=== PATIENT | female | born 1980 | race African-American/Black ===

== ENCOUNTER 2018-07-15 10:31 | Emergency (ER) | payer MEDICAID ==
[~2018-07-15] VITALS: Ht 175.3 cm; Wt 86.6 kg
[~2018-07-15 10:31] MED LIST: CIPRO250 M1 PO; IBUPROFEN 800800 M1 PO; MELOXICAM7.5 MG PO; NAPROSYN500 MG PO; NORCO 5-325 TA1 EACH; NORCO 5-325 TA1 EACH PO; PENICILLIN VK500 M1 PO; PHENERGAN12.5 MG RE; PYRIDIUM200 MG PO; RELAFEN750 MG PO; ZANAFLEX4 M1 PO
[2018-07-15 10:47] LABS: URINE BILIRUBIN NEGATIVE (Negative); URINE BLOOD 1+ (Negative); URINE CLARITY CLEAR; URINE COLOR YELLOW; URINE GLUCOSE-RANDOM NEGATIVE (Negative); URINE KETONES NEGATIVE (Negative); URINE LEUKOCYTES-REFLEX NEGATIVE (Negative); URINE NITRITE-REFLEX NEGATIVE (Negative); URINE PROTEIN NEGATIVE (Negative); URINE SPECIFIC GRAVITY 1.025 (1.005-1.030); URINE UROBILINOGEN 0.2 E.U./dl (0.2-1.0)
[2018-07-15] MEDS ORDERED: METFORMIN HCL500 MG PO (10:49)
[2018-07-15] MEDS ORDERED: HYDROCHLOROTH12.5 M1 PO (10:50)
[2018-07-15 10:54] LABS: MUCUS 4-6 Moderate strn/LPF (None Seen); SQUAMOUS >10 Many /LPF (0-3)
[2018-07-15 10:55] LABS: HYALINE CASTS 0-3 Few /LPF (None Seen)
[2018-07-15 10:56] LABS: BACTERIA-REFLEX 1-9 Few /HPF (None Seen); CRYSTALS None Seen /LPF (None Seen); URINE RBC 0-2 Rare /HPF (0-2); URINE WBC-REFLEX 0-5 Rare /HPF (0-5)
[2018-07-15 11:17] LABS: HEMATOCRIT 37.6 % (37.0-47.0); HEMOGLOBIN 12.2 gm/dL (12.0-15.0); MCH 24.3 pg (26.0-34.0); MCHC 32.3 g/dL (28.0-37.0); MPV 8.1 fl. (7.2-11.1); RBC 5.01 mil/uL (4.20-5.00); RDW-CV 16.3 % (10.5-14.5); WBC 5.3 thou/uL (4.0-11.0)
[2018-07-15] MEDS ORDERED: IBUPROFEN 800800 M1 PO (11:24)
[2018-07-15 11:36] VITALS: BP 132/97
== END 2018-07-15 11:39 | disposition home or self-care (01) ==
LOC: M.ERS 10:31
PROVIDERS: Family Medicine; Nurse Practitioner Family
DX: N93.8 Other specified abnormal uterine and vaginal bleeding (principal); R42 Dizziness and giddiness; E11.9 Type 2 diabetes mellitus without complications; I10 Essential (primary) hypertension; Z88.0 Allergy status to penicillin

== ENCOUNTER 2018-08-08 12:29 | Emergency (ER) | payer MEDICAID ==
[~2018-08-08] VITALS: Ht 175.3 cm; Wt 81.7 kg
[~2018-08-08 12:29] MED LIST changes: +HYDROCHLOROTH12.5 M1 PO; +METFORMIN HCL500 MG PO
[2018-08-08 13:29] LABS: ABSOLUTE BASOPHILS 0.1 thou/uL (0.0-0.2); ABSOLUTE EOSINOPHILS 0.4 thou/uL (0.0-0.7); ABSOLUTE LYMPHOCYTES 2.2 thou/uL (0.8-5.3); ABSOLUTE MONOCYTES 0.3 thou/uL (0.0-1.2); ABSOLUTE NEUTROPHILS 2.4 thou/uL (1.6-8.1); BASOPHILS 1.2 %; EOSINOPHILS 6.7 %; HEMATOCRIT 36.2 % (37.0-47.0); HEMOGLOBIN 11.6 gm/dL (12.0-15.0); LYMPHOCYTES 41.5 %; MCH 24.1 pg (26.0-34.0); MCHC 32.2 g/dL (28.0-37.0); MONOCYTES 5.9 %; MPV 8.1 fl. (7.2-11.1); NUCLEATED RBCS 0 /100WBC; PLATELET COUNT* 333 thou/uL (150-400); POLYS 44.7 %; RBC 4.82 mil/uL (4.20-5.00); RDW-CV 17.5 % (10.5-14.5); WBC 5.3 thou/uL (4.0-11.0)
[2018-08-08 13:44] LABS: ANION GAP 8 mmol/L (7-16); BUN 14 mg/dL (7-18); CALCIUM 9.2 mg/dL (8.5-10.1); CHLORIDE 104 mmol/L (98-107); CO2 25 mmol/L (21-32); CREATININE 0.7 mg/dL (0.6-1.3); GLUCOSE 114 mg/dL (70-99); POTASSIUM 3.9 mmol/L (3.5-5.1); SODIUM 137 mmol/L (136-145)
[2018-08-08 13:48] LABS: ALBUMIN 3.6 g/dL (3.4-5.0); ALKALINE PHOSPHATASE 53 U/L (46-116); MAGNESIUM 1.7 mg/dL (1.8-2.4); SGOT 24 U/L (15-37); SGPT 25 U/L (30-65); TOTAL BILIRUBIN 0.4 mg/dL (<0.1-1.0); TOTAL PROTEIN 7.7 g/dL (6.4-8.2); TROPONIN-I LEVEL <0.06 ng/mL (<0.06)
[2018-08-08 14:30] LABS: INFLUENZA A ANTIGEN None Detected (None Detect); INFLUENZA B ANTIGEN None Detected (None Detect)
[2018-08-08] MEDS ORDERED: NORCO 5-325 TA1 EACH PO (15:36)
[2018-08-08] MEDS ORDERED: TORADOL 10 MG T10 MG PO (15:36)
[2018-08-08 15:46] VITALS: BP 141/94
--- NOTE | 2018-08-08 17:12 | EKG ---
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: Marissa GRIJALVA : 1980 Requested By: Funmilayo Kevin Order Number: [id number] MD: Francisco Guy Measurements Intervals [place] Rate: 88 P: 50 TN: 177 QRS: -22 QRSD: 95 T: 35 QT: 374 QTc: 453 Interpretive Statements Sinus rhythm Probable left atrial enlargement Borderline left axis deviation Consider anterior infarct No previous ECG available for comparison Electronically Signed On 08-08-2018 17:12:05 CDT by Francisco Guy [email or web address] <ELECTRONICALLY SIGNED> By: Francisco Guy MD, [facility] 08/08/18 1712 1236 123 Francisco Guy MD, FACC /EPI
== END 2018-08-08 15:47 | disposition home or self-care (01) ==
LOC: M.ERS 12:29
PROVIDERS: Personal Emergency Response Attendant
DX: B34.9 Viral infection, unspecified (principal); M79.10 Myalgia, unspecified site; I10 Essential (primary) hypertension; E11.9 Type 2 diabetes mellitus without complications; Z88.0 Allergy status to penicillin; Z98.51 Tubal ligation status; R11.2 Nausea with vomiting, unspecified

== ENCOUNTER 2018-10-20 10:21 | Emergency (ER) | payer OTHER ==
[~2018-10-20] VITALS: Ht 175.3 cm; Wt 88.5 kg
[~2018-10-20 10:21] MED LIST changes: +TORADOL 10 MG T10 MG PO
[2018-10-20] MEDS ORDERED: FLEXERIL PO (10:41)
[2018-10-20] MEDS ORDERED: NORCO 5-325 TA1 EACH PO (11:36)
[2018-10-20 11:56] VITALS: BP 123/75
== END 2018-10-20 11:57 | disposition home or self-care (01) ==
LOC: M.ERS 10:21
DX: M25.561 Pain in right knee (principal); W19.XXXA Unspecified fall, initial encounter; Y93.89 Activity, other specified; Y92.89 Other specified places as the place of occurrence of the external cause; Y99.8 Other external cause status; I10 Essential (primary) hypertension; E11.9 Type 2 diabetes mellitus without complications

== ENCOUNTER 2018-10-26 09:57 | Emergency (ER) | payer OTHER ==
[~2018-10-26] VITALS: Ht 175.3 cm; Wt 89.8 kg
[~2018-10-26 09:57] MED LIST changes: +FLEXERIL PO
[2018-10-26 10:01] VITALS: BP 146/98
[2018-10-26] MEDS ORDERED: TRAMADOL 50 MG50 MG PO (10:16)
== END 2018-10-26 10:24 | disposition home or self-care (01) ==
LOC: M.ERS 09:57
DX: M25.561 Pain in right knee (principal); Z76.0 Encounter for issue of repeat prescription; I10 Essential (primary) hypertension; E11.9 Type 2 diabetes mellitus without complications; Z88.0 Allergy status to penicillin; Z88.5 Allergy status to narcotic agent; F17.210 Nicotine dependence, cigarettes, uncomplicated

== ENCOUNTER 2018-12-20 15:35 | Emergency (ER) | payer OTHER ==
[~2018-12-20] VITALS: Ht 175.3 cm; Wt 86.2 kg
[~2018-12-20 15:35] MED LIST changes: +TRAMADOL 50 MG50 MG PO
[2018-12-20 16:33] LABS: ABSOLUTE BASOPHILS 0.1 thou/uL (0.0-0.2); ABSOLUTE EOSINOPHILS 0.3 thou/uL (0.0-0.7); ABSOLUTE LYMPHOCYTES 1.3 thou/uL (0.8-5.3); ABSOLUTE MONOCYTES 0.4 thou/uL (0.0-1.2); ABSOLUTE NEUTROPHILS 4.9 thou/uL (1.6-8.1); EOSINOPHILS 3.8 %; HEMATOCRIT 38.2 % (37.0-47.0); HEMOGLOBIN 12.5 gm/dL (12.0-15.0); LYMPHOCYTES 19.2 %; MCH 24.3 pg (26.0-34.0); MCHC 32.7 g/dL (28.0-37.0); MCV 74.4 fL (80.0-100.0); MONOCYTES 5.3 %; MPV 8.1 fl. (7.2-11.1); NUCLEATED RBCS 0 /100WBC; PLATELET COUNT* 320 thou/uL (150-400); POLYS 70.7 %; RBC 5.13 mil/uL (4.20-5.00); RDW-CV 17.7 % (10.5-14.5)
[2018-12-20 16:54] LABS: ALBUMIN 3.6 g/dL (3.4-5.0); CALCIUM 9.6 mg/dL (8.5-10.1); POTASSIUM 3.6 mmol/L (3.5-5.1); TOTAL BILIRUBIN 0.3 mg/dL (<0.1-1.0); TOTAL PROTEIN 7.7 g/dL (6.4-8.2)
[2018-12-20] MEDS ORDERED: TESSALON PERLE100 MG PO (16:59)
[2018-12-20] MEDS ORDERED: ACETAMINOPHEN-1 EAC1 PO (16:59)
[2018-12-20] MEDS ORDERED: KEFLEX500 M1 PO (16:59)
[2018-12-20] MEDS ORDERED: ZOFRAN ODT4 MG PO (16:59)
[2018-12-20] MEDS ORDERED: MEDROLDOSEPACK PO (16:59)
[2018-12-20 17:10] LABS: INFLUENZA A ANTIGEN None Detected (None Detect); INFLUENZA B ANTIGEN None Detected (None Detect)
[2018-12-20 17:33] VITALS: BP 127/81
== END 2018-12-20 17:34 | disposition home or self-care (01) ==
LOC: M.ERS 15:35
PROVIDERS: Physician Assistant
DX: J20.9 Acute bronchitis, unspecified (principal); R11.2 Nausea with vomiting, unspecified; I10 Essential (primary) hypertension; E11.9 Type 2 diabetes mellitus without complications; Z98.890 Other specified postprocedural states; Z88.0 Allergy status to penicillin; Z88.5 Allergy status to narcotic agent

== ENCOUNTER 2020-07-19 05:37 | Emergency (ER) | payer OTHER ==
[~2020-07-19] VITALS: Ht 175.3 cm; Wt 81.6 kg
[~2020-07-19 05:37] MED LIST changes: +ACETAMINOPHEN-1 EAC1 PO; +KEFLEX500 M1 PO; +MEDROLDOSEPACK PO; +TESSALON PERLE100 MG PO; +ZOFRAN ODT4 MG PO
[2020-07-19 06:30] LABS: ABSOLUTE BASOPHILS 0.1 thou/uL (0.0-0.2); ABSOLUTE EOSINOPHILS 0.3 thou/uL (0.0-0.7); ABSOLUTE LYMPHOCYTES 2.7 thou/uL (0.8-5.3); ABSOLUTE MONOCYTES 0.3 thou/uL (0.0-1.2); ABSOLUTE NEUTROPHILS 3.6 thou/uL (1.6-8.1); BASOPHILS 1.1 %; EOSINOPHILS 4.8 %; HEMATOCRIT 35.1 % (37.0-47.0); HEMOGLOBIN 11.5 gm/dL (12.0-15.0); LYMPHOCYTES 38.4 %; MCH 22.4 pg (26.0-34.0); MCHC 32.8 g/dL (28.0-37.0); MCV 68.4 fL (80.0-100.0); MONOCYTES 4.5 %; NUCLEATED RBCS 0 /100WBC; PLATELET COUNT* 363 thou/uL (150-400); POLYS 51.2 %; RBC 5.13 mil/uL (4.20-5.00); RDW-CV 20.2 % (10.5-14.5)
[2020-07-19 06:34] LABS: CALCIUM 8.8 mg/dL (8.5-10.1); CREATININE 1.1 mg/dL (0.6-1.3); POTASSIUM 3.6 mmol/L (3.5-5.1)
[2020-07-19 06:38] LABS: ALBUMIN 3.9 g/dL (3.4-5.0); TOTAL BILIRUBIN 0.3 mg/dL (<0.1-1.0); TOTAL PROTEIN 8.2 g/dL (6.4-8.2)
[2020-07-19 06:46] LABS: URINE BILIRUBIN NEGATIVE (Negative); URINE BLOOD NEGATIVE (Negative); URINE CLARITY CLEAR; URINE COLOR YELLOW; URINE GLUCOSE-RANDOM NEGATIVE (Negative); URINE KETONES NEGATIVE (Negative); URINE LEUKOCYTES-REFLEX TRACE (Negative); URINE NITRITE-REFLEX NEGATIVE (Negative); URINE PROTEIN NEGATIVE (Negative); URINE SPECIFIC GRAVITY >= 1.030 (1.005-1.030); URINE UROBILINOGEN 0.2 E.U./dl (0.2-1.0)
[2020-07-19 07:20] LABS: ANISOCYTOSIS 2+; HYPOCHROMASIA 2+; MICROCYTES 2+
[2020-07-19] MEDS ORDERED: PERCOCET 5-3251 EACH PO (07:22)
[2020-07-19] MEDS ORDERED: ZOFRAN ODT4 MG SUBLING (07:22)
[2020-07-19 07:33] VITALS: BP 131/92
--- NOTE | 2020-07-19 15:43 | EKG ---
[place] [address] ELECTROCARDIOGRAM REPORT Name: JP CHARLES Room: [facility]#: [id number] Admission: 07/19/20 Attend Phys: Discharge: 07/19/20 Date of : 76 Date of Service: 07/19/20616 Report #: [id number] THIS REPORT FOR: //name// 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: : 1980 Requested By: Funmilayo Kevin Order Number: [id number] MD: Dylon Cheung Measurements Intervals [place] Rate: 75 P: 34 [place]: 190 QRS: -20 QRSD: 108 T: 27 QT: 403 QTc: 451 Interpretive Statements Sinus rhythm Borderline left axis deviation Baseline wander in lead(s) III Compared to ECG 08/08/2018 12:36:58 Myocardial infarct finding no longer present Electronically Signed On 07-19-2020 15:43:21 CDT by Dylon Cheung [email or web address] <ELECTRONICALLY SIGNED> By: Dylon Cheung MD, FACC 07/19/20 1543 0617 Dylon Cheung MD, [facility] /EPI
== END 2020-07-19 07:33 | disposition home or self-care (01) ==
LOC: M.ERS 05:37
PROVIDERS: Personal Emergency Response Attendant
DX: R10.11 Right upper quadrant pain (principal); R10.12 Left upper quadrant pain; R10.84 Generalized abdominal pain; R11.2 Nausea with vomiting, unspecified; I10 Essential (primary) hypertension; E11.9 Type 2 diabetes mellitus without complications; Z98.51 Tubal ligation status; Z88.0 Allergy status to penicillin; Z88.6 Allergy status to analgesic agent

== ENCOUNTER 2020-08-14 07:52 | Emergency (ER) | payer OTHER ==
[~2020-08-14] VITALS: Ht 175.3 cm; Wt 84.4 kg
[~2020-08-14 07:52] MED LIST changes: +PERCOCET 5-3251 EACH PO; +ZOFRAN ODT4 MG SUBLING
[2020-08-14 08:24] LABS: ABSOLUTE BASOPHILS 0.1 thou/uL (0.0-0.2); ABSOLUTE EOSINOPHILS 0.2 thou/uL (0.0-0.7); ABSOLUTE LYMPHOCYTES 2.6 thou/uL (0.8-5.3); ABSOLUTE MONOCYTES 0.3 thou/uL (0.0-1.2); ABSOLUTE NEUTROPHILS 3.9 thou/uL (1.6-8.1); BASOPHILS 1.3 %; EOSINOPHILS 2.9 %; HEMATOCRIT 33.4 % (37.0-47.0); HEMOGLOBIN 10.5 gm/dL (12.0-15.0); LYMPHOCYTES 36.4 %; MCH 21.5 pg (26.0-34.0); MCHC 31.5 g/dL (28.0-37.0); MCV 68.1 fL (80.0-100.0); MPV 7.7 fl. (7.2-11.1); NUCLEATED RBCS 0 /100WBC; PLATELET COUNT* 392 thou/uL (150-400); POLYS 55.4 %; WBC 7.1 thou/uL (4.0-11.0)
[2020-08-14 08:32] LABS: CALCIUM 9.5 mg/dL (8.5-10.1); CREATININE 0.9 mg/dL (0.6-1.3); POTASSIUM 3.6 mmol/L (3.5-5.1)
[2020-08-14 08:37] LABS: ALBUMIN 3.9 g/dL (3.4-5.0); TOTAL BILIRUBIN 0.3 mg/dL (<0.1-1.0); TOTAL PROTEIN 8.4 g/dL (6.4-8.2)
[2020-08-14 09:01] LABS: HYPOCHROMASIA 2+; MICROCYTES 3+; PLATELET ESTIMATE ADEQUATE
[2020-08-14] MEDS ORDERED: BENTYL 20 MG TA20 M1 PO (09:59)
[2020-08-14] MEDS ORDERED: ZOFRAN ODT4 MG DISSOLVE (09:59)
[2020-08-14] MEDS ORDERED: PERCOCET 5-3251 EACH PO (09:59)
[2020-08-14 10:05] VITALS: BP 130/60
--- NOTE | 2020-08-14 10:50 | EKG ---
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
== END 2020-08-14 10:05 | disposition home or self-care (01) ==
LOC: M.ERS 07:52
PROVIDERS: Emergency Medicine Emergency Medical Services
DX: R10.84 Generalized abdominal pain (principal); R11.2 Nausea with vomiting, unspecified; Z88.6 Allergy status to analgesic agent; Z88.0 Allergy status to penicillin

== ENCOUNTER 2020-12-11 10:44 | Emergency (ER) | payer OTHER ==
[~2020-12-11] VITALS: Ht 175.3 cm; Wt 81.7 kg
[~2020-12-11 10:44] MED LIST changes: +BENTYL 20 MG TA20 M1 PO; +ZOFRAN ODT4 MG DISSOLVE
[2020-12-11 11:41] LABS: CALCIUM 9.5 mg/dL (8.5-10.1); CREATININE 0.9 mg/dL (0.6-1.3); POTASSIUM 3.9 mmol/L (3.5-5.1)
[2020-12-11 11:43] LABS: APTT 23.9 Seconds (25.0-31.3); INR 1.1; PROTIME 11.2 Seconds (9.20-11.50)
[2020-12-11 11:46] LABS: ALBUMIN 3.6 g/dL (3.4-5.0); TOTAL BILIRUBIN 0.4 mg/dL (<0.1-1.0); TOTAL PROTEIN 7.4 g/dL (6.4-8.2)
[2020-12-11 11:47] LABS: ABSOLUTE EOSINOPHILS 0.2 thou/uL (0.0-0.7); ABSOLUTE LYMPHOCYTES 1.8 thou/uL (0.8-5.3); ABSOLUTE MONOCYTES 0.3 thou/uL (0.0-1.2); ABSOLUTE NEUTROPHILS 2.8 thou/uL (1.6-8.1); BASOPHILS 0.4 %; EOSINOPHILS 4.3 %; HEMATOCRIT 34.9 % (37.0-47.0); HEMOGLOBIN 10.9 gm/dL (12.0-15.0); LYMPHOCYTES 34.3 %; MCH 21.1 pg (26.0-34.0); MCHC 31.2 g/dL (28.0-37.0); MCV 67.8 fL (80.0-100.0); MONOCYTES 6.4 %; MPV 7.4 fl. (7.2-11.1); NUCLEATED RBCS 0 /100WBC; PLATELET COUNT* 362 thou/uL (150-400); POLYS 54.6 %; RBC 5.15 mil/uL (4.20-5.00); RDW-CV 19.3 % (10.5-14.5); WBC 5.1 thou/uL (4.0-11.0)
[2020-12-11 12:06] LABS: URINE BILIRUBIN NEGATIVE (Negative); URINE BLOOD TRACE (Negative); URINE CLARITY CLEAR; URINE COLOR YELLOW; URINE GLUCOSE-RANDOM NEGATIVE (Negative); URINE KETONES NEGATIVE (Negative); URINE LEUKOCYTES-REFLEX NEGATIVE (Negative); URINE NITRITE-REFLEX NEGATIVE (Negative); URINE PROTEIN NEGATIVE (Negative); URINE SPECIFIC GRAVITY 1.025 (1.005-1.030); URINE UROBILINOGEN 0.2 E.U./dl (0.2-1.0)
[2020-12-11 12:12] LABS: ANISOCYTOSIS 1+; HYPOCHROMASIA 2+; MICROCYTES 2+
[2020-12-11] MEDS ORDERED: ONDANSETRON ODT4 MG PO (12:53)
[2020-12-11] MEDS ORDERED: NORCO5 PO ×2 (12:53→12:56)
[2020-12-11 13:53] VITALS: BP 149/95
== END 2020-12-11 13:53 | disposition home or self-care (01) ==
LOC: M.ERS 10:44
PROVIDERS: Physician Assistant
DX: R10.84 Generalized abdominal pain (principal); R11.2 Nausea with vomiting, unspecified; K92.1 Melena; Z88.0 Allergy status to penicillin

== ENCOUNTER 2021-02-05 07:21 | Emergency (ER) | payer OTHER ==
[~2021-02-05] VITALS: Ht 175.3 cm; Wt 81.7 kg
[~2021-02-05 07:21] MED LIST changes: +NORCO5 PO; +ONDANSETRON ODT4 MG PO
[2021-02-05 07:34] LABS: URINE BLOOD 3+ (Negative); URINE CLARITY CLEAR; URINE COLOR YELLOW; URINE GLUCOSE-RANDOM NEGATIVE (Negative); URINE KETONES NEGATIVE (Negative); URINE LEUKOCYTES-REFLEX NEGATIVE (Negative); URINE NITRITE-REFLEX NEGATIVE (Negative); URINE PROTEIN NEGATIVE (Negative); URINE SPECIFIC GRAVITY >= 1.030 (1.005-1.030); URINE UROBILINOGEN 0.2 E.U./dl (0.2-1.0)
[2021-02-05 07:53] LABS: ABSOLUTE BASOPHILS 0.1 thou/uL (0.0-0.2); ABSOLUTE EOSINOPHILS 0.3 thou/uL (0.0-0.7); ABSOLUTE LYMPHOCYTES 1.8 thou/uL (0.8-5.3); ABSOLUTE MONOCYTES 0.3 thou/uL (0.0-1.2); ABSOLUTE NEUTROPHILS 2.4 thou/uL (1.6-8.1); BASOPHILS 1.7 %; EOSINOPHILS 5.7 %; HEMATOCRIT 34.7 % (37.0-47.0); LYMPHOCYTES 36.4 %; MCH 21.5 pg (26.0-34.0); MCHC 31.8 g/dL (28.0-37.0); MCV 67.8 fL (80.0-100.0); MONOCYTES 6.8 %; MPV 7.5 fl. (7.2-11.1); NUCLEATED RBCS 0 /100WBC; PLATELET COUNT* 369 thou/uL (150-400); POLYS 49.4 %; RBC 5.13 mil/uL (4.20-5.00); RDW-CV 18.6 % (10.5-14.5); WBC 4.9 thou/uL (4.0-11.0)
[2021-02-05 08:02] LABS: CALCIUM 8.7 mg/dL (8.5-10.1); CREATININE 0.9 mg/dL (0.6-1.3); POTASSIUM 4.4 mmol/L (3.5-5.1)
[2021-02-05 08:06] LABS: ALBUMIN 3.5 g/dL (3.4-5.0); TOTAL BILIRUBIN 0.2 mg/dL (<0.1-1.0); TOTAL PROTEIN 7.7 g/dL (6.4-8.2)
[2021-02-05 08:06] LABS: URINE BILIRUBIN 1+ (Negative)
[2021-02-05 08:07] LABS: ICTOTEST (BILI CONFIRMATORY) Negative (Negative)
[2021-02-05 08:08] LABS: BACTERIA-REFLEX 1-9 Few /HPF (None Seen); CASTS None Seen /LPF (None Seen); CRYSTALS None Seen /LPF (None Seen); MUCUS 4-6 Moderate strn/LPF (None Seen); SQUAMOUS 0-3 Few /LPF (0-3); URINE RBC >20 Many /HPF (0-2); URINE WBC-REFLEX 0-5 Rare /HPF (0-5)
[2021-02-05 08:11] LABS: PLATELET ESTIMATE ADEQUATE; TARGET CELLS 1+
[2021-02-05 08:12] LABS: ANISOCYTOSIS 1+; HYPOCHROMASIA 1+; MICROCYTES 1+; OVALOCYTES 1+
[2021-02-05 08:58] VITALS: BP 137/84
== END 2021-02-05 08:58 | disposition home or self-care (01) ==
LOC: M.ERS 07:21
PROVIDERS: Family Medicine
DX: K59.00 Constipation, unspecified (principal); Z98.890 Other specified postprocedural states; Z88.0 Allergy status to penicillin

== ENCOUNTER 2021-04-07 18:19 | Emergency (ER) | payer OTHER ==
[~2021-04-07] VITALS: Ht 175.3 cm; Wt 81.7 kg
[2021-04-07] MEDS ORDERED: PEPCID AC20 MG PO (19:57)
[2021-04-07] MEDS ORDERED: HYDROCORTISONE3011 TP (19:57)
[2021-04-07] MEDS ORDERED: PREDNISONE 20 M20 M1 PO (19:57)
[2021-04-07 20:05] VITALS: BP 126/70
== END 2021-04-07 20:07 | disposition home or self-care (01) ==
LOC: M.ERS 18:19
DX: L25.9 Unspecified contact dermatitis, unspecified cause (principal); I10 Essential (primary) hypertension; Z98.51 Tubal ligation status; Z91.018 Allergy to other foods; Z88.0 Allergy status to penicillin

== ENCOUNTER 2021-10-27 23:36 | Emergency (ER) | payer OTHER ==
[~2021-10-27] VITALS: Ht 175.3 cm; Wt 87.1 kg
[~2021-10-27 23:36] MED LIST changes: +HYDROCORTISONE3011 TP; +PEPCID AC20 MG PO; +PREDNISONE 20 M20 M1 PO
[2021-10-28] MEDS ORDERED: HYDROCHLOROTH12.5 M2 (00:09)
[2021-10-28] MEDS ORDERED: METFORMIN HCL500 M3 (00:10)
[2021-10-28] MEDS ORDERED: ZOFRAN ODT4 MG DISSOLVE (00:25)
[2021-10-28] MEDS ORDERED: TESSALON PERLE100 MG PO (00:25)
[2021-10-28] MEDS ORDERED: FLEXERIL PO (00:31)
[2021-10-28 00:52] VITALS: BP 140/99
== END 2021-10-28 00:54 | disposition home or self-care (01) ==
LOC: M.ERS 23:36
DX: U07.1 COVID-19 (principal); I10 Essential (primary) hypertension; E11.9 Type 2 diabetes mellitus without complications; Z98.51 Tubal ligation status; Z79.84 Long term (current) use of oral hypoglycemic drugs; Z79.899 Other long term (current) drug therapy; Z88.0 Allergy status to penicillin; Z91.018 Allergy to other foods